=== PATIENT | female | born 1980 | race Caucasian/White ===

== ENCOUNTER → 2019-10-08 12:00 | Outpatient (BNVA) | payer SELFPAY | PROVIDERS: Family Provider Family Medicine; PCP Family Medicine; Visit Provider Family Medicine | DX: Z00.00 Encounter for general adult medical examination without abnormal findings (principal); Z83.49 Family history of other endocrine, nutritional and metabolic diseases; Z83.3 Family history of diabetes mellitus; Z83.42 Family history of familial hypercholesterolemia; F41.9 Anxiety disorder, unspecified | CPT/HCPCS: 80053; 80061; 83036; 84439; 84443; 85025 ==

== ENCOUNTER → 2022-01-28 11:00 | Outpatient (BNVA) | payer SELFPAY | PROVIDERS: Family Provider Family Medicine; PCP Family Medicine; Visit Provider Family Medicine | DX: R04.0 Epistaxis (principal); F41.9 Anxiety disorder, unspecified | CPT/HCPCS: 36415; 85025 ==

== ENCOUNTER → 2025-04-17 12:10 | Outpatient (BNVA) | payer SELFPAY | PROVIDERS: Family Provider Family Medicine; PCP Family Medicine; Visit Provider Family Medicine | DX: Z00.00 Encounter for general adult medical examination without abnormal findings (principal); Z83.3 Family history of diabetes mellitus | CPT/HCPCS: 85025 ==

== ENCOUNTER → 2025-06-11 10:06 | Outpatient (BNVA) | payer SELFPAY | PROVIDERS: Family Provider Family Medicine; PCP Family Medicine; Visit Provider Family Medicine | DX: D69.6 Thrombocytopenia, unspecified (principal) | CPT/HCPCS: 85025 ==

== ENCOUNTER → 2025-09-09 15:14 | Outpatient (BNVA) | payer SELFPAY | PROVIDERS: Family Provider Family Medicine; PCP Family Medicine; Visit Provider Family Medicine | DX: R39.89 Other symptoms and signs involving the genitourinary system (principal); N30.90 Cystitis, unspecified without hematuria | CPT/HCPCS: 81000; 87491; 87591 ==